=== PATIENT | female | born 1990 | race Two or more races ===

== ENCOUNTER 2023-06-01 16:36 | Emergency (ER) | payer SELFPAY | END 2023-06-01 16:39 | disposition short-term general hospital (02) | LOC: ER 16:36 → EDBD 16:36 → ER 16:39 | DX: R40.4 Transient alteration of awareness (principal); V89.2XXA Person injured in unspecified motor-vehicle accident, traffic, initial encounter; Y93.89 Activity, other specified; Y92.411 Interstate highway as the place of occurrence of the external cause; Y99.8 Other external cause status | CPT/HCPCS: 76815 ==